=== PATIENT | female | born 1930 | race Caucasian/White ===

== ENCOUNTER 2017-11-08 12:28 | Emergency (ER) | payer MEDICARE ==
--- OUTSIDE RECORDS SUMMARY | 2017-11-08 13:29 | XMS REPORT | Continuity of Care Document ---
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 Latha Guardado PayID: [id number] [address] [place] [address] Advance Directives Description No Information Available Problems Description No Information Family History Description No Information Available Social History Type Date Description Comments Sex Unknown Tobacco Use Start: Unknown End: Unknown Former Cigarette Smoker ETOH Use Quit Using Alcohol. Recreational Drug Use Never Used Drugs Allergies, Adverse Reactions, Alerts Date Description Reaction Status Severity Comments 10/30/2017 Albuterol behavioral Active Moderate 10/30/2017 Bandaids Hives, Itching Active Moderate 10/30/2017 Adhesive Hives, Itching Active Moderate Medications Medication Date Status Form Strength Qnty SIG Indications Ordering Provider Levothyroxine 0 Active Tablets 88mcg 1 tab Unknown Sodium 000 every morning Amlodipine 0 Active Tablets 1 by Unknown Besylate 000 mouth every day Amiodarone HCL 00/0 Active Tablets 1 by Unknown 000 mouth every day Donepezil HCL 00/0 Active Tablets Unknown 000 Pravastatin 0 Active Tablets Unknown Sodium [address] 81mg 1 by Unknown 000 mouth every day Vitamin D 0 Active Capsules 1000Unit Unknown 000 Glipizide 000 Active Tablets Unknown 000 Sertraline HCL 000 Active Tablets 1 by Unknown 000 mouth every day Tylenol 00/00/0 Active Capsules 325mg 2 tab Unknown 000 every 6 hours as needed Immunizations Description No Information Available Vital Signs Date Vital Result Comment 10/30/2017 1:48pm Weight 141.00 lb Height 61 inches 5'1" BMI (Body Mass Index) 26.6 kg/m2 BP Systolic 130 mmHg BP Diastolic 72 mmHg Heart Rate 86 /min O2 % BldC Oximetry 95 % Body Temperature 98.8 F Pain Level 0 Results Description No Information Available Procedures Date Code Description Status 10/30/2017 80052 Remove Impacted Cerumen Completed Encounters Type Date Location Provider Dx Diagnosis Office Visit 10/30/2017 Main Office Agustina Ross, H61.23 Impacted 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
--- OUTSIDE RECORDS SUMMARY | 2017-11-08 13:29 | XMS REPORT | Continuity of Care Document ---
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 Doris Garcia MD Primary Care Physician Unavailable Payers Type Date Identification Numbers Payment Provider Subscriber Policy Number: [id number] Medicare Latha Guardado PayID: [id number] [address] [place] [address] Policy Number: [id number] [facility] Latha Guardado PayID: [id number] [address] [place] [address] Advance Directives Description No Information Available Problems [...] Besylate 000 mouth every day Amiodarone HCL 0 Active Tablets 1 by Unknown 000 mouth every day Donepezil HCL /0 Active Tablets Unknown 000 Pravastatin 0 Active Tablets Unknown Sodium [address] 81mg 1 by Unknown 000 mouth every day Vitamin D 0 Active Capsules 1000Unit Unknown 000 Glipizide 0 Active Tablets Unknown 000 Sertraline HCL 000 Active Tablets 1 by Unknown 000 mouth every day Tylenol 0 Active Capsules 325mg 2 tab Unknown 000 [...] 0 Results Description No Information Available Procedures Description No Information Available Encounters Description No Information Available Plan of Treatment No Information Available
--- OUTSIDE RECORDS SUMMARY | 2017-11-08 13:33 | XMS REPORT ---
:1930 External Reference #:[id number] [facility] Address [address], [address] [place] [address] Phone [phone] Care Team Providers Name Role Phone Doris Garcia MD Care Team Information Olive Packer Unavailable Doris Garcia MD Primary Care Physician Unavailable Payers Type Date Identification Numbers Payment Provider Subscriber Medicare Primary Policy Number: [id number] Medicare Latha Guardado PayID: [id number] [address] [place] [address] [facility] Part B Effective: Policy Number: [employer] Latha Causey 2014 [id number] [employer] PayID: [id number] [address] [place] [address] Problems Date Description Provider Status Onset: 04/06/2011 Sinus node dysfunction Ilan Kyle M.D., Active FACC Onset: 04/06/2011 Benign essential hypertension Ilan Kyle M.D., Active FACC Onset: 04/06/2011 Heart murmur Ilan Kyle M.D., Active FACC Onset: 05/02/2011 Complete atrioventricular block Ilan Kyle M.D., Active FACC Onset: 05/02/2011 Syncope and collapse Ilan Kyle M.D., Active FACC Onset: 11/05/2012 Atrial fibrillation Ilan Kyle M.D., Active FACC Onset: 11/21/2013 Fall From Snowboard Ilan Kyle M.D., Active FACC Onset: 11/26/2014 Cardiac pacemaker in situ Ilan Kyle M.D., Active FACC Onset: 05/31/2015 Essential hypertension Kimmie Alexander, Active MSN, VIDEO TAPE EDITOR Onset: 11/04/2015 Preoperative cardiovascular Ilan Kyle M.D., Active examination FACC Onset: 11/04/2015 Paroxysmal atrial fibrillation Ilan Kyle M.D., Active FACC Family History Date Family Member(s) Problem(s) Comments Father due to Natural Causes () - and asthma Mother due to Uterine Cancer () Mother Cancer First Son Diabetes Mellitus Type 2 First Son Hypertension First Son Hypercholesterolemia 3 additional sons, 1 daughter all healthy. 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 ADL's/IADL's Independent with all ADL's Cigarette Use 02/2013 Quit ETOH Use Denies alcohol use Smoking Yes Daily Caffeine Current Caffeine User Exercise Type/Frequency Does not exercise Exercise Limitations Shortness Of Breath Allergies, Adverse Reactions, Alerts Date Description Reaction Status Severity Comments 03/13/2013 Albuterol active "makes her crazy" 08/20/2014 Codeine active 07/16/2013 Adhesives active 07/08/2008 NKDA inactive Medications Medication Date Status Form Strength Qnty SIG Indications Ordering Provider Amiodarone HCL 03/04 Active Tablets 200mg 30tab Take One s Tablet By Ilan M.D., Every Day FACC Pravastatin 12/13 Active Tablets 10mg 30tab 1 po daily s with Doris causey evening MD meal Aspirin Ec 03/[address] 81mg 1 po daily with a Doris causey meal MD Glipizide Active Tablets 5mg 1/2 po qd Catherine Kimmie Murcia , MSN, VIDEO TAPE EDITOR Loperamide HCL Active Capsules 2mg prn prn Unknown diarrhea Levothyroxine Active Tablets 100mcg 30tab 1 by mouth Unknown Sodium s every day Tylenol Active Tablets 500mg 2 by mouth Unknown every 4 hours as needed Amlodipine Active Tablets 5mg 1/2 po qd Unknown Besylate Donepezil HCL Active Tablets 10mg 1 tab by Unknown mouth every daily Vitamin D3 Active Capsules 5000Unit 1 a day Unknown Maximum Strength Sertraline HCL Active Tablets 25mg 1 by mouth Unknown every day Furosemide 05/28 Hx Tablets 20mg 30tab 1 po ning s weekly and Doris causey prn MD Atenolol 04/06 Hx Tablets 25mg 60tab Take One 401.1 Rapidan s Tablet By Ilan M.D., 11/21 Every Day [facility] Imdur 07/09 Hx Tablets ER 30mg 1/2 po qd 24HR , Ilan Rogers M.D., [facility] Furosemide 07/08 Hx Tablets 40mg 1 po qd , Ilan Rogers M.D., [facility] Novolin 70/30 07/08 Hx Suspension 30 55 Units SQ qd , Ilan Rogers M.D., [facility] Lisinopril 07/08 Hx Tablets 20mg 1 po bid , Ilan Rogers M.D., [facility] Amlodipine 07/08 Hx Tablets 10mg 1 po qd Davidenko Besylate , Ilan Rogers M.D., [facility] Alendronate 07/08 Hx Tablets 35mg 1 po qweek enko Sodium , Ilan Rogers M.D., [facility] Ergocalciferol 07/08 Hx Powder 78021Vef as directed , Ilan Rogers M.D., [facility] Calcium 07/08 Hx Tablets 600-125 1 po qd Davidenko Carbonate/Vitamin /2008 , Ilan Rogers M.D., [facility] Aspirin 07/08 Hx Tablets 81mg 90tab 1 po qd s Ilan M.D., [facility] Meclizine HCL 07/08 Hx Tablets 12.5mg 1-2 tabs po q6h prn , Ilan Rogers M.D., [facility] Vitamin D 07/08 Hx Capsules 98670Lczw 1 po qweek , Ilan Rogers M.D., 11/08 [facility] Vitamin D Hx Tablets 1000Unit 2 po qd Unknown / Actos Hx Tablets 15mg 1 po qd Unknown Furosemide Hx Tablets 20mg 1 po qd Unknown Atenolol Hx Tablets 25mg 1 po qd 780.2 - 11/09 Tylenol Extra Hx Tablets 500mg 120ta 2 tab po Unknown Strength / bs qhs prn Anti-Diarrheal Hx Capsules 2mg po prn , Ilan Rogers M.D., [facility] Novolin 70/30 Hx Suspension 70-30% 55 units qd , Ilan Rogers M.D., [facility] Cholecalciferol Hx Crystals 1000mg 1 po qday Unknown / Januvia Hx Tablets 25mg 1 po qd Unknown / Iron Hx Tablets 325(65Fe) 60tab 1 po qd Unknown /0000 mg s Lasix Hx Tablets 20mg 1 po qd Unknown / - 07/15 Amlodipine Hx Tablets 5mg 90tab 1 po qd Alexander, Besylate /0000 s Kimmie - Simonetta / , MSN, /2013 VIDEO TAPE EDITOR Vitamin D Hx Capsules 2000Unit 1 po qd Unknown /0000 Coumadin Hx Tablets 2.5mg 60tab 1-2 tabs Unknown /0000 s po qd as - directed 07/15 Vital Signs Date Vital Result Comment 10/16/2017 BP Systolic Sitting Left Arm 120 mmHg BP Diastolic Sitting Left Arm 60 mmHg Heart Rate 82 /min Respiratory Rate 14 /min Height 63 inches 5'3" Weight 143.00 lb BMI (Body Mass Index) 25.3 kg/m2 BSA (Body Surface Area) 1.68 m2 Alpha body weight in kilograms 52 O2 % BldC Oximetry 96 % 11/06/2016 BP Systolic Sitting Right Arm 144 mmHg BP Diastolic Sitting Right Arm 72 mmHg Heart Rate 77 /min Respiratory Rate 17 /min Height 63 inches 5'3" Weight 149.00 lb BMI (Body Mass Index) 26.4 kg/m2 BSA (Body Surface Area) 1.71 m2 Alpha body weight in kilograms 52 11/04/2015 BP Systolic Sitting Right Arm 140 mmHg BP Diastolic Sitting Right Arm 76 mmHg Heart Rate 72 /min Respiratory Rate 16 /min Height 63 inches 5'3" Weight 145.00 lb BMI (Body Mass Index) 25.7 kg/m2 BSA (Body Surface Area) 1.69 m2 05/31/2015 BP Systolic Sitting Right Arm 148 mmHg BP Diastolic Sitting Right Arm 58 mmHg Heart Rate 82 /min Respiratory Rate 16 /min Height 63 inches 5'3" Weight 146.00 lb BMI (Body Mass Index) 25.9 kg/m2 BSA (Body Surface Area) 1.69 m2 11/26/2014 BP Systolic Sitting Left Arm 138 mmHg BP Diastolic Sitting Left Arm 56 mmHg Heart Rate 67 /min Respiratory Rate 16 /min Height 63 inches 5'3" Weight 150.00 lb BMI (Body Mass Index) 26.6 kg/m2 BSA (Body Surface Area) 1.71 m2 05/27/2014 BP Systolic Sitting Left Arm 142 mmHg BP Diastolic Sitting Left Arm 82 mmHg Heart Rate 78 /min Respiratory Rate 20 /min Height 63 inches 5'3" Weight 157.00 lb BMI (Body Mass Index) 27.8 kg/m2 BSA (Body Surface Area) 1.74 m2 11/21/2013 BP Systolic Sitting Right Arm 134 mmHg BP Diastolic Sitting Right Arm 84 mmHg Heart Rate 88 /min Respiratory Rate 18 /min Height 63 inches 5'3" Weight 151.00 lb BMI (Body Mass Index) 26.7 kg/m2 BSA (Body Surface Area) 1.72 m2 07/16/2013 BP Systolic Sitting Right Arm 118 mmHg BP Diastolic Sitting Right Arm 62 mmHg Height 63 inches 5'3" Weight 151.00 lb BMI (Body Mass Index) 26.7 kg/m2 BSA (Body Surface Area) 1.72 m2 04/28/2013 BP Systolic Sitting Right Arm 134 mmHg BP Diastolic Sitting Right Arm 68 mmHg Heart Rate 78 /min Respiratory Rate 18 /min Height 63.5 inches 5'3.50" Weight 144.00 lb BMI (Body Mass Index) 25.1 kg/m2 BSA (Body Surface Area) 1.69 m2 11/05/2012 BP Systolic Sitting Right Arm 130 mmHg BP Diastolic Sitting Right Arm 62 mmHg Heart Rate 82 /min Respiratory Rate 16 /min Height 63.5 inches 5'3.50" Weight 145.00 lb BMI (Body Mass Index) 25.3 kg/m2 BSA (Body Surface Area) 1.70 m2 07/16/2012 BP Systolic Sitting Right Arm 122 mmHg BP Diastolic Sitting Right Arm 60 mmHg Heart Rate 84 /min Respiratory Rate 16 /min Height 63.5 inches 5'3.50" Weight 147.00 lb BMI (Body Mass Index) 25.6 kg/m2 BSA (Body Surface Area) 1.71 m2 05/02/2011 BP Systolic Sitting Right Arm 126 mmHg BP Diastolic Sitting Right Arm 62 mmHg Heart Rate 68 /min Respiratory Rate 16 /min Height 63.5 inches 5'3.50" Weight 148.00 lb BMI (Body Mass Index) 25.8 kg/m2 04/06/2011 BP Systolic Sitting Right Arm 166 mmHg BP Diastolic Sitting Right Arm 68 mmHg Heart Rate 68 /min Regular Respiratory Rate 16 /min Height 63.5 inches 5'3.50" Weight 143.00 lb BMI (Body Mass Index) 24.9 kg/m2 11/09/2009 BP Systolic Sitting Right Arm 124 mmHg BP Diastolic Sitting Right Arm 54 mmHg Heart Rate 46 /min Irregular Respiratory Rate 12 /min Height 63.5 inches 5'3.50" Weight 154.00 lb BMI (Body Mass Index) 26.8 kg/m2 07/09/2008 Heart Rate 52 /min Weight 154.00 lb Results Test Date Test Result H/L Range Note Laboratory test finding 07/01/2015 A/G Ratio 1.7 Ratio 1.0-2.2 Flora Egfr 30 Low >60 Albumin 4.1 g/dL 3.6-4.9 Alkaline Phosphatase 54 U/L 24-140 Alt 16 U/L 3-42 Anion Gap 9 mmol/L 6-14 Ast 21 U/L 8-42 BUN 37 mg/dL High 6-26 CPK 63 U/L 12-199 Calcium 9.4 mg/dL 8.5-10.2 Carbon Dioxide 28 mmol/L 24-34 Chloride 107 mmol/L 97-109 Creatinine 1.9 mg/dL High 0.5-1.4 Globulin 2.4 g/dL 2.0-3.5 Glucose 157 mg/dL High 70-105 Hemoglobin A1c 5.9 % 4.1-5.9 Non Flora Egfr 25 Low >60 Potassium 4.6 mmol/L 3.5-5.2 1 Sodium 139 mmol/L 134-142 2 Total Bilirubin 0.6 mg/dL 0.1-1.3 Total Protein 6.5 g/dL 6.0-8.0 Lipid 07/01/2015 Chol/ HDL Ratio 2.9 ratio Low 3.7-5.6 Cholesterol 117 mg/dL 50-199 3 HDL 41 mg/dL 35-85 LDL (Calc) 52 mg/dL 20-99 Triglycerides 121 mg/dL 30-200 4 VLDL 24 mg/dL 2- Lipid 12/10/2014 Chol/ HDL Ratio 2.8 ratio Low 3.7-5.6 Cholesterol 130 mg/dL 50-199 HDL 47 mg/dL 35-85 LDL (Calc) 58 mg/dL 20-99 Triglycerides 126 mg/dL 30-200 VLDL 25 mg/dL 2- Laboratory test finding 12/10/2014 A/G Ratio 1.9 Ratio 1.0-2.2 Flora Egfr 29 Low >60 Albumin 4.6 g/dL 3.6-4.9 Alkaline Phosphatase 56 U/L 24-140 Alt 14 U/L 3-42 Anion Gap 12 mmol/L 6-14 Ast 18 U/L 8-42 BUN 36 mg/dL High 6-26 CPK 55 U/L 12-199 Calcium 9.7 mg/dL 8.5-10.2 Carbon Dioxide 26 mmol/L 24-34 Chloride 104 mmol/L 97-109 Creatinine 2.0 mg/dL High 0.5-1.4 Globulin 2.4 g/dL 2.0-3.5 Glucose 92 mg/dL 70-105 Hemoglobin A1c 5.8 % 4.1-5.9 Non Flora Egfr 24 Low >60 Potassium 5.2 mmol/L 3.5-5.2 Sodium 137 mmol/L 134-142 TSH 1.93 uIU/mL 0.35-4.94 Total Bilirubin 0.7 mg/dL 0.1-1.3 Total Protein 7.0 g/dL 6.0-8.0 Vit D,25 Hydroxy 61 ng/mL 31-100 Lipid 09/01/2014 Chol/ HDL Ratio 2.8 ratio Low 3.7-5.6 Cholesterol 118 mg/dL 50-199 HDL 42 mg/dL 35-85 5 LDL (Calc) 55 mg/dL 20-99 6 Triglycerides 104 mg/dL 30-200 VLDL 21 mg/dL 2-29 Laboratory test finding 09/01/2014 A/G Ratio 2.0 Ratio 1.0-2.2 Flora Egfr 23 Low >60 7 Albumin 4.5 g/dL 3.6-4.9 Alkaline Phosphatase 53 U/L 24-140 Alt 14 U/L 3-42 Anion Gap 13 mmol/L 6-14 Ast 20 U/L 8-42 BUN 36 mg/dL High 6-26 CPK 74 U/L 12-199 Calcium 9.5 mg/dL 8.5-10.2 Carbon Dioxide 28 mmol/L 24-34 Chloride 106 mmol/L 97-109 Creatinine 2.4 mg/dL High 0.5-1.4 Globulin 2.3 g/dL 2.0-3.5 Glucose 137 mg/dL High 70-105 Hemoglobin A1c 5.7 % 4.1-5.9 Non Flora Egfr 19 Low >60 8 Potassium 5.3 mmol/L High 3.5-5.2 Sodium 142 mmol/L 134-142 TSH 2.61 uIU/mL 0.35-4.94 Total Bilirubin 0.6 mg/dL 0.1-1.3 Total Protein 6.8 g/dL 6.0-8.0 Lipid Panel 06/11/2013 Cholesterol 138.0 mg/dL 50.0-199.0 HDL 47.0 mg/dL 29.0-86.0 Triglycerides 83.0 mg/dL 30.0-249.0 Chol/HDL Ratio 2.9 ratio vLDL 16.6 ng/dL LDL, Calculated 74.4 mg/dL 20.0-129.0 Laboratory test finding 06/11/2013 Sodium 142.0 mmil/L 137.0-145.0 Potasium 4.9 mmol/L 3.6-5.0 Chloride 108.0 mmol/L High 98.0-107.0 Co2 25.0 mmol/L 22.0-30.0 Glucose 144.0 mg/dL High 75.0-110.0 BUN 46.0 mg/dL High 7.0-18.0 Creatinine-Serum 2.4 mg/dL High 0.7-1.2 BUN/Creat Ratio 19.2 ratio 12.0-20.0 Anion Gap 9.0 mmol/L Low 10.0-20.0 Calcium 9.1 mg/dL 8.7-10.5 Total Protein 7.6 g/dL 6.3-8.2 Albumin 4.5 g/dL 3.5-5.0 Globulin 3.1 g/dL 2.7-4.3 A/G Ratio 1.5 ratio Low 1.6-2.2 Ast 15.0 U/L 14.0-36.0 Alt 9.0 U/L 9.0-52.0 Total Bilirubin 0.8 mg/dL 0.2-1.3 Laboratory test finding 06/11/2013 Alk. Phos. 56.0 U/L 30.0-126.0 eGFR 20.8 mi/minper1.73 9 WBC 6.3 K/ul 4.1-10.9 RBC 4.0 M/ul Low 4.2-6.3 HGB 12.1 Gm/dl 12.0-16.0 HCT 35.3 % Low 37.0-51.0 MCV 87.6 Fl 80.0-97.0 MCH 30.0 pg 26.0-32.0 MCHC 34.2 g/dL 31.0-36.0 RDW 13.2 % 11.5-14.5 PLT 178 K/ul 140-440 MPV 6.6 fL 6.0-10.0 % Jia 72 % High 50-70 % Lymph 18 % Low 20-44 % Hocking 7.9 % 2.0-10.0 % Eos. 1.3 % 0.0-4.0 % Baso. 0.9 % 0.0-2.0 Absolute Jia. 4.53 K/ul 2.05-7.63 Absolute Lymph. 1.2 K/ul 0.8-4.8 Absolute Hocking. 0.5 K/ul 0.1-1.0 Absolute Eos. 0.1 K/ul 0.0-0.5 Absolute Baso. 0.1 K/ul 0.0-0.3 Vitamin D 38.9 ng/mL 30.0-100.0 % A1c 5.6 % 4.1-6.5 Protime 05/12/2013 Protime 19.3 s High 12.1-14.9 Inr 1.6 High 0.9-1.1 10 Protime 03/23/2011 Protime 14.2 seconds 12.2-15.2 Inr 1.1 0.9-1.1 11 1 Concerning GFR Guidelines: Normal function or mild renal disease, if clinically at risk: >/=60 mL/min Moderately decreased: 30-59 Severely decreased: 15-29 Renal failure: <15 Glomerular Filtration Rate (GFR) is estimated based on the MDRD equation, which assumes a steady state for creatinine as recommended by the National Kidney Disease Education Program in conjunction with the National Institutes of Health and the National Kidney Foundation. Clinical conditions in which it may be necessary to measure GFR by using clearance methods include extremes of age and body size, severe malnutrition or obesity, diseases of skeletal muscle, paraplegia or quadriplegia, vegetarian diet, rapidly changing kidney function, and calculation of the dose of potentially toxic drugs that are excreted by the kidneys. 2 Concerning GFR Guidelines for Americans: Normal function or mild renal disease, if clinically at risk: >/=60 mL/min Moderately decreased: 30-59 Severely decreased: 15-29 Renal failure: <15 3 Per NCEP ATP III Guidelines: Results lower than 40 mg/dL are suggestive of increased risk for coronary artery disease. Results > or=to 60 mg/dL are considered a negative risk factor. 4 Per NCEP ATP III Guidelines: Normal Population <130 Patients with medical conditions: CHD/DM Optimal: <100 Borderline high: 130-159 High: 160-189 Very high: >189 5 Per NCEP ATP III Guidelines: Results lower than 40 mg/dL are suggestive of increased risk for coronary artery disease. Results > or=to 60 mg/dL are considered a negative risk factor. 6 Per NCEP ATP III Guidelines: Normal Population <130 Patients with medical conditions: CHD/DM Optimal: <100 Borderline high: 130-159 High: 160-189 Very high: >189 7 Concerning GFR Guidelines for Americans: Normal function or mild renal disease, if clinically at risk: >/=60 mL/min Moderately decreased: 30-59 Severely decreased: 15-29 Renal failure: <15 8 Concerning GFR Guidelines: Normal function or mild renal disease, if clinically at risk: >/=60 mL/min Moderately decreased: 30-59 Severely decreased: 15-29 Renal failure: <15 Glomerular Filtration Rate (GFR) is estimated based on the MDRD equation, which assumes a steady state for creatinine as recommended by the National Kidney Disease Education Program in conjunction with the National Institutes of Health and the National Kidney Foundation. Clinical conditions in which it may be necessary to measure GFR by using clearance methods include extremes of age and body size, severe malnutrition or obesity, diseases of skeletal muscle, paraplegia or quadriplegia, vegetarian diet, rapidly changing kidney function, and calculation of the dose of potentially toxic drugs that are excreted by the kidneys. 9 For -Japanese patients multiply result by 1.180 10 THERAPEUTIC INR RANGE: 2.0 - 3.0 DVT, Pulmonary embolus, prophylaxis against venous thrombosis or systemic embolization in high risk patients. 2.5 - 3.5 Mechanical heart valves 11 THERAPEUTIC INR RANGE: 2.0 - 3.0 DVT, Pulmonary embolus, prophylaxis against venous thrombosis or systemic embolization in high risk patients. 2.5 - 3.5 Mechanical heart valves Procedures Date CPT Code Description Status 10/16/2017 32176 Dual Pacemaker Programming Anayisis, Review And Report Completed 10/16/2017 06788 EKG-Tracing And Report Completed 04/17/2017 85199 Dual Pacemaker Programming Anayisis, Review And Report Completed 11/06/2016 91156 EKG-Tracing And Report Completed 10/17/2016 21317 Dual Pacemaker Programming Anayisis, Review And Report Completed 04/18/2016 06656 Dual Pacemaker Programming Anayisis, Review And Report Completed 04/18/2016 72146 Dual Pacemaker Programming Anayisis, Review And Report Completed 11/16/2015 21860 Cardioversion/Defibrillation Dual Pacemaker Completed 11/16/2015 38267 Cardioversion/Defibrillation Dual Pacemaker Completed 05/31/2015 53543 Dual Pacemaker Programming Anayisis, Review And Report Completed 05/31/2015 60308 Dual Pacemaker Programming Anayisis, Review And Report Completed 05/31/2015 59832 EKG-Tracing And Report Completed 05/18/2015 57941 Dual Pacemaker Programming Anayisis, Review And Report Completed 05/18/2015 04330 Dual Pacemaker Programming Anayisis, Review And Report Completed 12/31/2014 08161 Echocardiogram Complete Completed 11/26/2014 66145 Dual Pacemaker Programming Anayisis, Review And Report Completed 11/26/2014 72707 EKG-Tracing And Report Completed 05/19/2014 76486 Dual Pacemaker Programming Anayisis, Review And Report Completed 05/19/2014 66374 Dual Pacemaker Programming Anayisis, Review And Report Completed 11/21/2013 31896 EKG-Tracing And Report Completed 11/18/2013 35418 Dual Pacemaker Programming Anayisis, Review And Report Completed 11/18/2013 06389 Dual Pacemaker Programming Anayisis, Review And Report Completed 07/01/2013 60295 Dual Pacemaker Programming Anayisis, Review And Report Completed 07/01/2013 35192 Dual Pacemaker Programming Anayisis, Review And Report Completed 04/28/2013 57854 Pacemaker Interrogaton Eval In Person Completed 04/28/2013 03686 Pacemaker Interrogaton Eval In Person Completed 04/11/2013 81140 Myocardial Imaging Tomographic Multiple Study AT Rest Completed Or Stress 04/11/2013 78642 Stress Test Physician Super Only Completed 04/11/2013 44793 Stress Test Physician Super Only Completed 04/11/2013 24776 Stress Test Interpre And Report Only Completed 04/10/2013 04548 Echocardiogram Complete Completed 03/04/2013 76596 Dual Pacemaker Programming Anayisis, Review And Report Completed 03/04/2013 42809 Dual Pacemaker Programming Anayisis, Review And Report Completed 11/05/2012 67677 EKG-Tracing And Report Completed 10/29/2012 69396 Dual Pacemaker Programming Anayisis, Review And Report Completed 10/29/2012 56496 Dual Pacemaker Programming Anayisis, Review And Report Completed 07/16/2012 83398 EKG-Tracing And Report Completed 06/18/2012 52561 Dual Pacemaker Programming Anayisis, Review And Report Completed 06/18/2012 57800 Dual Pacemaker Programming Anayisis, Review And Report Completed 01/30/2012 46333 Dual Pacemaker Programming Anayisis, Review And Report Completed 01/30/2012 48294 Dual Pacemaker Programming Anayisis, Review And Report Completed 10/10/2011 38420 Dual Pacemaker Programming Anayisis, Review And Report Completed 10/10/2011 70061 Dual Pacemaker Programming Anayisis, Review And Report Completed 06/13/2011 97240 Dual Pacemaker Programming Anayisis, Review And Report Completed 05/02/2011 06854 Dual Pacemaker Programming Anayisis, Review And Report Completed 04/06/2011 01808 EKG-Tracing And Report Completed 03/23/2011 51362 Echocardiogram Complete Completed 03/23/2011 64590 Insert or replace pacemaker with electrodes, atrial & Completed ventricle 03/23/2011 81051 Anesthesia, Pacemaker Insertion Completed 06/06/2010 95134 EKG Interpretation And Report Only Completed 12/27/2009 27402 Event Monitor Inter/Review Only Completed 11/09/2009 26164 EKG Interpretation And Report Only Completed 07/09/2008 01293 EKG-Tracing And Report Completed 06/23/2008 27844 Echocardiography 2D Inducedstress Completed 06/23/2008 83912 Stress Test Interpre And Report Only Completed 12/18/1994 27596 Cholecystectomy W. Cholaniography Completed Encounters Type Date Location Provider CPT E/M Dx Office Visit 10/16/2017 11:00a Cardiology Office Kimmie Alexander 36378 I49.5 PAM Murcia, VIDEO TAPE EDITOR I48.0 I10 Z95.0 Office Visit 11/06/2016 10:00a Cardiology Office Kimmie Alexander, 17216 I49.5 MSN, VIDEO TAPE EDITOR I48.0 I10 Z95.0 R60.0 Office Visit 11/04/2015 2:20p Cardiology Office Ilan Kyle, 74390 Z01.810 M.Henry, [facility] I49.5 I48.0 Office Visit 05/31/2015 3:00p Cardiology Office Kimmie Alexander, 37006 I48.0 MSN, VIDEO TAPE EDITOR I49.5 I10 Z95.0 Office Visit [facility]2014 [facility] [place] [address] R26.2 Center R53.1 Z91.81 Office Visit 11/26/2014 10:30a Cardiology Office Ilan Kyle 46712 I48.0 M.Henry, [facility] Z95.0 Office Visit 05/27/2014 10:20a Cardiology Office Kimmie Alexander 01438 786.50 MSN, VIDEO TAPE EDITOR 427.81 426.0 427.31 401.1 250.00 V45.01 Office Visit 11/21/2013 11:20a Cardiology Office Ilan Kyle, 48143 427.81 M.D., FACC 427.31 426.0 Office Visit 07/23/2013 9:45a Orthopaedic Office Charmaine Garcia, 78977 719.43 RPAC 715.04 Office Visit 07/16/2013 1:45p Orthopaedic Office Charmaine Garcia, 78068 719.43 RPAC 715.04 Office Visit 04/28/2013 11:20a Cardiology Office Kimmie Alexander, 92959 427.31 MSN, VIDEO TAPE EDITOR 427.81 426.0 V45.01 401.1 Office Visit 04/15/2013 10:22a [facility] Kristen Nettles M.D. 73406 585.3 [facility] 250.00 401.9 Office Visit 04/11/2013 10:54a Cardiology Office Ilan Kyle, 06445 786.50 M.D., FACC Office Visit 02/21/2013 9:06a [facility] Jean-Paul Galindo, 67237 428.0 [facility] M.DChristie 491.21 Office Visit 11/05/2012 10:45a Cardiology Office Ilan Kyle, 40777 427.81 M.D., FACC 427.31 426.0 Office Visit 07/16/2012 1:40p Cardiology Office Kimmie Alexander, 13626 427.81 MSN, VIDEO TAPE EDITOR V45.01 401.1 Office Visit 05/02/2011 10:00a Cardiology Office Ilan Kyle, 76269 426.0 M.D., FACC 780.2 401.1 Office Visit 04/06/2011 10:00a Cardiology Office Ilan Kyle, 25507 427.81 M.D., FACC 401.1 785.2 Office Visit 03/23/2011 10:49a Surgical Office Keith Roe 16359 427.81 H., Jessica 427.89 Office Visit 03/23/2011 4:23p Cardiology Office Ilan Kyle, 39618 427.89 M.D., FACC Office Visit 11/09/2009 11:00a Cardiology Office Anabella Ilan Ken, 34595 780.2 M.D., [facility] 786.51 401.1 V72.81 Office Visit 07/09/2008 1:15p Cardiology Office AnabellaIlan, 67843 786.51 M.D., [facility] 786.05 780.4 V15.82 Plan of Care Future Appointment(s):04/16/2018 10:45 am - Abby Mccurdy PA at Cardiology [id number]/16/2017 - Kimmie Alexander, MSN, FNPI49.5 Sick sinus syndromeComments:We changed her pacer mode to DDDR and she is now A-V pacing. Monitor. Will follow in our clinic, per protocol.I48.0 Paroxysmal atrial fibrillationComments:No changes. Monitor.I10 Essential (primary) hypertensionComments:No changes.Z95.0 Presence of cardiac pacemakerComments: Will follow in our pacer clinic, per protocol.AllFollow up:Follow up visit in one year.
--- OUTSIDE RECORDS SUMMARY | 2017-11-08 13:33 | XMS REPORT ---
:1930 External Reference #:[id number] Author Organization [facility] Address [address], [address] [place] [address] Phone [phone] Care Team Providers Name Role Phone Doris Garcia MD Care Team Information Technology Officer Unavailable Doris Garcia MD Primary Care Physician Unavailable Payers Type Date Identification Numbers Payment Provider Subscriber Medicare Primary Policy Number: [id number] Medicare Latha Guardado PayID: [id number] [address] [place] [address] [facility] Effective: Policy Number: [employer] Latha Causey 2014 [id number] [employer] PayID: [id number] [address] [place] [address] Problems Date Description Provider Status Onset: 04/06/2011 [...] 05/31/2015 Essential hypertension Kimmie Alexander, Active MSN, ESCAPEMENT MATCHER Onset: 11/04/2015 Preoperative cardiovascular Ilan Kyle M.D., [...] diabetic diet 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's/IADL's Independent [...] po qd Catherine Kimmie Murcia , MSN, ESCAPEMENT MATCHER Loperamide HCL Active Capsules 2mg prn prn [...] Hx Tablets 25mg 60tab Take One 401.1 [place] s Tablet By Ilan M.D., 11/21 Every Day [facility] Imdur 07/09 Hx Tablets ER 30mg 1/2 po qd 24HR , Ilan Rogers M.D., [facility] Furosemide 07/08 Hx Tablets 40mg 1 po qd , Ilan Rogers M.D., [facility] Novolin 70/30 07/08 Hx Suspension 30 55 Units SQ qd , Ilan Rogers M.D., [facility] Lisinopril 07/08 Hx Tablets 20mg 1 po bid , Ilan Rogers M.D., [facility] Amlodipine 07/08 Hx Tablets 10mg 1 po qd Davidenko Besylate , Ilan Rogers M.D., [facility] Alendronate 07/08 Hx Tablets 35mg 1 po qweek enko Sodium , Ilan Rogers M.D., [facility] Ergocalciferol 07/08 Hx Powder 42018Ofc as directed , Ilan Rogers M.D., [facility] Calcium 07/08 Hx Tablets 600-125 1 po qd Davidenko Carbonate/Vitamin /2008 , Ilan Rogers M.D., [facility] Aspirin 07/08 Hx Tablets 81mg 90tab 1 po qd s Ilan M.D., [facility] Meclizine HCL 07/08 Hx Tablets 12.5mg 1-2 tabs po q6h prn , Ilan Rogers M.D., [facility] Vitamin D 07/08 Hx Capsules 39214Pxdl 1 po qweek , Ilan Rogers M.D., 11/08 [facility] Vitamin D Hx Tablets 1000Unit 2 po qd Unknown / Actos Hx Tablets 15mg 1 po qd Unknown Furosemide Hx Tablets 20mg 1 po qd Unknown Atenolol Hx Tablets 25mg 1 po qd 780.2 - 11/09 Tylenol Extra Hx Tablets 500mg 120ta 2 tab po Unknown Strength / bs qhs prn Anti-Diarrheal Hx Capsules 2mg po prn , Ilan Rogers M.D., [facility] Novolin 70/30 Hx Suspension 70-30% 55 units qd , Ilan Rogers M.D., [facility] Cholecalciferol Hx Crystals 1000mg 1 po qday Unknown / Januvia Hx Tablets 25mg 1 po qd Unknown / Iron Hx Tablets 325(65Fe) 60tab 1 po qd Unknown /0000 mg s Lasix Hx Tablets 20mg 1 po qd Unknown / - 07/15 Amlodipine Hx Tablets 5mg 90tab 1 po qd Alexander, Besylate /0000 s Kimmie - Simonetta / , MSN, /2013 ESCAPEMENT MATCHER Vitamin D Hx Capsules 2000Unit 1 po [...] kg/m2 BSA (Body Surface Area) 1.68 m2 [place] body weight in kilograms 52 O2 % BldC Oximetry 96 % 11/06/2016 BP Systolic Sitting Right Arm 144 mmHg BP Diastolic Sitting Right Arm 72 mmHg Heart Rate 77 /min Respiratory Rate 17 /min Height 63 inches 5'3" Weight 149.00 lb BMI (Body Mass Index) 26.4 kg/m2 BSA (Body Surface Area) 1.71 m2 [place] body weight in kilograms 52 11/04/2015 BP [...] mg/dL 0.1-1.3 Total Protein 6.8 g/dL 6.0-8.0 Laboratory test finding 06/11/2013 Sodium 142.0 mmil/L [...] U/L 9.0-52.0 Total Bilirubin 0.8 mg/dL 0.2-1.3 Lipid Panel 06/11/2013 Cholesterol 138.0 mg/dL 50.0-199.0 HDL 47.0 mg/dL 29.0-86.0 Triglycerides 83.0 mg/dL 30.0-249.0 Chol/HDL Ratio 2.9 ratio vLDL 16.6 ng/dL LDL, Calculated 74.4 mg/dL 20.0-129.0 Laboratory test finding 06/11/2013 Alk. Phos. 56.0 [...] % Lymph 18 % Low 20-44 % [place] 7.9 % 2.0-10.0 % Eos. 1.3 % 0.0-4.0 % Baso. 0.9 % 0.0-2.0 Absolute Jia. 4.53 K/ul 2.05-7.63 Absolute Lymph. 1.2 K/ul 0.8-4.8 Absolute Rusk. 0.5 K/ul 0.1-1.0 Absolute Eos. 0.1 K/ul [...] are excreted by the kidneys. 9 For -[place] patients multiply result by 1.180 10 THERAPEUTIC [...] Procedures Date CPT Code Description Status 10/16/2017 39687 EKG-Tracing And Report Completed 04/17/2017 29220 Dual Pacemaker Programming Anayisis, Review And Report Completed 11/06/2016 87805 EKG-Tracing And Report Completed 10/17/2016 03940 Dual Pacemaker Programming Anayisis, Review And Report Completed 04/18/2016 62168 Dual Pacemaker Programming Anayisis, Review And Report Completed 04/18/2016 21511 Dual Pacemaker Programming Anayisis, Review And Report Completed 11/16/2015 44681 Cardioversion/Defibrillation Dual Pacemaker Completed 11/16/2015 83415 Cardioversion/Defibrillation Dual Pacemaker Completed 05/31/2015 34044 Dual Pacemaker Programming Anayisis, Review And Report Completed 05/31/2015 51014 Dual Pacemaker Programming Anayisis, Review And Report Completed 05/31/2015 54490 EKG-Tracing And Report Completed 05/18/2015 07062 Dual Pacemaker Programming Anayisis, Review And Report Completed 05/18/2015 29064 Dual Pacemaker Programming Anayisis, Review And Report Completed 12/31/2014 80153 Echocardiogram Complete Completed 11/26/2014 86540 Dual Pacemaker Programming Anayisis, Review And Report Completed 11/26/2014 86892 EKG-Tracing And Report Completed 05/19/2014 41634 Dual Pacemaker Programming Anayisis, Review And Report Completed 05/19/2014 90214 Dual Pacemaker Programming Anayisis, Review And Report Completed 11/21/2013 60893 EKG-Tracing And Report Completed 11/18/2013 43717 Dual Pacemaker Programming Anayisis, Review And Report Completed 11/18/2013 99883 Dual Pacemaker Programming Anayisis, Review And Report Completed 07/01/2013 69605 Dual Pacemaker Programming Anayisis, Review And Report Completed 07/01/2013 65248 Dual Pacemaker Programming Anayisis, Review And Report Completed 04/28/2013 50414 Pacemaker Interrogaton Eval In Person Completed 04/28/2013 06707 Pacemaker Interrogaton Eval In Person Completed 04/11/2013 58960 Myocardial Imaging Tomographic Multiple Study AT Rest Completed Or Stress 04/11/2013 08890 Stress Test Physician Super Only Completed 04/11/2013 38003 Stress Test Physician Super Only Completed 04/11/2013 05359 Stress Test Interpre And Report Only Completed 04/10/2013 87309 Echocardiogram Complete Completed 03/04/2013 53933 Dual Pacemaker Programming Anayisis, Review And Report Completed 03/04/2013 79955 Dual Pacemaker Programming Anayisis, Review And Report Completed 11/05/2012 02598 EKG-Tracing And Report Completed 10/29/2012 90955 Dual Pacemaker Programming Anayisis, Review And Report Completed 10/29/2012 21370 Dual Pacemaker Programming Anayisis, Review And Report Completed 07/16/2012 75634 EKG-Tracing And Report Completed 06/18/2012 37576 Dual Pacemaker Programming Anayisis, Review And Report Completed 06/18/2012 52325 Dual Pacemaker Programming Anayisis, Review And Report Completed 01/30/2012 77257 Dual Pacemaker Programming Anayisis, Review And Report Completed 01/30/2012 16678 Dual Pacemaker Programming Anayisis, Review And Report Completed 10/10/2011 41678 Dual Pacemaker Programming Anayisis, Review And Report Completed 10/10/2011 95828 Dual Pacemaker Programming Anayisis, Review And Report Completed 06/13/2011 43650 Dual Pacemaker Programming Anayisis, Review And Report Completed 05/02/2011 87154 Dual Pacemaker Programming Anayisis, Review And Report Completed 04/06/2011 55676 EKG-Tracing And Report Completed 03/23/2011 93797 Echocardiogram Complete Completed 03/23/2011 53367 Insert or replace pacemaker with electrodes, atrial & Completed ventricle 03/23/2011 89190 Anesthesia, Pacemaker Insertion Completed 06/06/2010 52182 EKG Interpretation And Report Only Completed 12/27/2009 49474 Event Monitor Inter/Review Only Completed 11/09/2009 84796 EKG Interpretation And Report Only Completed 07/09/2008 56508 EKG-Tracing And Report Completed 06/23/2008 17789 Echocardiography 2D Inducedstress Completed 06/23/2008 88608 Stress Test Interpre And Report Only Completed 12/18/1994 92607 Cholecystectomy W. Cholaniography Completed Encounters Type Date Location Provider CPT E/M Dx Office Visit 10/16/2017 11:00a Cardiology Office Kimmie Alexander 68150 I49.5 Divina, PAM, ESCAPEMENT MATCHER I48.0 I10 Z95.0 Office Visit 11/06/2016 10:00a Cardiology Office Kimmie Alexander 46317 I49.5 MSN, ESCAPEMENT MATCHER I48.0 I10 Z95.0 R60.0 Office Visit 11/04/2015 2:20p Cardiology Office Ilan Kyle, 17874 Z01.810 MPrema, [facility] I49.5 I48.0 Office Visit 05/31/2015 3:00p Cardiology Office Kimmie Alexander, 92542 I48.0 MSN, ESCAPEMENT MATCHER I49.5 I10 Z95.0 Office Visit 12/12[facility]2014 [facility] [address] R26.2 Center R53.1 Z91.81 Office Visit 11/26/2014 10:30a Cardiology Office Ilan Kyle 80314 I48.0 MPrema, [facility] Z95.0 Office Visit 05/27/2014 10:20a Cardiology Office Kimmie Alexander 80289 786.50 MSN, ESCAPEMENT MATCHER 427.81 426.0 427.31 401.1 250.00 V45.01 Office Visit 11/21/2013 11:20a Cardiology Office Ilan Kyle 29366 427.81 M.D., FACC 427.31 426.0 Office Visit 07/23/2013 9:45a Orthopaedic Office Charmaine Garcia, 31141 719.43 RPAC 715.04 Office Visit 07/16/2013 1:45p Orthopaedic Office GarciaCharmaine rice, 54745 719.43 RPAC 715.04 Office Visit 04/28/2013 11:20a Cardiology Office Kimmie Alexander, 72474 427.31 MSN, ESCAPEMENT MATCHER 427.81 426.0 V45.01 401.1 Office Visit 04/15/2013 10:22a [facility] Kristen Nettles M.D. 59946 585.3 [facility] 250.00 401.9 Office Visit 04/11/2013 10:54a Cardiology Office Ilan Kyle, 50150 786.50 M.DChristie, FACC Office Visit 02/21/2013 9:06a [facility] Jean-Paul Galindo 90235 428.0 [facility] M.DChristie 491.21 Office Visit 11/05/2012 10:45a Cardiology Office Ilan Kyle, 38622 427.81 M.DChristie, FACC 427.31 426.0 Office Visit 07/16/2012 1:40p Cardiology Office Kimmie Alexander, 11096 427.81 MSN, ESCAPEMENT MATCHER V45.01 401.1 Office Visit 05/02/2011 10:00a Cardiology Office Ilan Kyle, 29010 426.0 M.DChristie, FACC 780.2 401.1 Office Visit 04/06/2011 10:00a Cardiology Office Ilan Kyle, 32551 427.81 M.D., FACC 401.1 785.2 Office Visit 03/23/2011 10:49a Surgical Office Keith Roe 61531 427.81 HJessica Soriano 427.89 Office Visit 03/23/2011 4:23p Cardiology Office Ilan Kyle 15276 427.89 M.DChristie, FACC Office Visit 11/09/2009 11:00a Cardiology Office Ilan KyleChristie, 21075 780.2 M.D., [facility] 786.51 401.1 V72.81 Office Visit 07/09/2008 1:15p Cardiology Office Ilan KyleChristie, 25433 786.51 M.D., [facility] 786.05 780.4 V15.82 Plan of Care Future Appointment(s):04/16/2018 10:45 am - Abby Mccurdy PA at Cardiology [id number]/16/2017 - Kimmie Alexander, MSN, FNPI49.5 Sick sinus syndromeComments:We changed her pacer mode to DDDR and she is now A-V pacing. Monitor. Will follow in our clinic, per protocol.I48.0 Paroxysmal atrial fibrillationComments:No changes. Monitor.I10 Essential (primary) hypertensionComments:No changes.Z95.0 Presence of cardiac pacemakerComments: Will follow in our pacer clinic, per protocol.AllFollow up:Follow up visit in one year.
[2017-11-08 13:54] VITALS: BP 132/48
--- NOTE | 2017-11-08 14:27 | UC ---
Back Pain HPI - HPI Summary HPI Summary: pt is accompanied by daughter. Pt reports that she fell two nights ago from standing and hit back on dresser with glass top. Pt is unsure why she fell , but now c/o right side low back and rib pain. Daughter reports that pt has bruises and abrasions on right side back and low back . - History of Current Complaint Chief Complaint: [place] Stated Complaint: S/P FALL (YEST) BACK CONTUSION Time Seen by Provider: 11/08/17 14:18 Hx Obtained From: Patient ?: No Onset/Duration: Sudden Onset, Lasting Days, Still Present Timing: Constant Severity Initially: Moderate Severity Currently: Mild Pain Intensity: 4 Back Pain: Is Discrete @ Character: Dull, Aching Aggravating Factor(s): Movement Alleviating Factor(s): Rest Associated Signs And Symptoms: Positive: Bruising, Other - abrasion - Risk Factors AAA Risk Factors: Negative TAD Risk Factors: Hypertension Cauda Equina Risk Factors: Negative Epidural Abscess Risk Factors: Negative - Allergies/Home Medications Allergies/Adverse Reactions: Allergies Allergy/AdvReac Type Severity Reaction Status Date / Time albuterol Allergy Agitation Verified 11/08/17 13:48 TAPE Allergy Rash Uncoded 11/08/17 13:48 Home Medications: Home Medications Acetaminophen [Tylenol Extra Strength] 500 mg PO Q6HR PRN 11/08/17 [History Confirmed 11/08/17] Amiodarone TAB* [Cordarone TAB*] 200 mg PO DAILY 11/08/17 [History Confirmed ] Aspirin EC TAB* [Ecotrin EC Low Dose 81 MG*] 81 mg PO DAILY 11/08/17 [History Confirmed 11/08/17] Cholecalciferol TAB* [Vitamin D TAB*] 400 unit PO DAILY 11/08/17 [History Confirmed 11/08/17] Donepezil TAB* [Aricept 5 MG TAB*] 10 mg PO DAILY 11/08/17 [History Confirmed ] Levothyroxine TAB* [Synthroid TAB*] 88 mcg PO 0800 11/08/17 [History Confirmed 11/08/17] Pravastatin Sodium 20 mg PO DAILY 11/08/17 [History Confirmed 11/08/17] Sertraline* [Zoloft*] 25 mg PO DAILY 11/08/17 [History Confirmed 11/08/17] amLODIPine TAB* [Norvasc 5 mg TAB*] 2.5 mg PO DAILY 11/08/17 [History Confirmed 11/08/17] glipiZIDE TAB* [Glucotrol TAB*] 2.5 mg PO DAILY 11/08/17 [History Confirmed ] PMH/Surg Hx/FS Hx/Imm Hx Previously Healthy: Yes Endocrine History: Dyslipidemia Cardiovascular History: Cardiac Disease, Hypertension, Pacemaker/ICD - Surgical History Surgical History: Yes Surgery Procedure, Year, and Place: [facility]. EYE - Family History Known Family History: Positive: Cardiac Disease - Social History Occupation: Retired Lives: With Family Alcohol Use: None Substance Use Type: None Smoking Status (MU): Former Smoker Have You Smoked in the Last Year: No Review of Systems Constitutional: Negative Skin: Bruising Eyes: Negative ENT: Negative Respiratory: Negative Cardiovascular: Negative Gastrointestinal: Negative Genitourinary: Negative Motor: Negative Neurovascular: Negative Musculoskeletal: Arthralgia, Myalgia Neurological: Negative Psychological: Negative Is Patient Immunocompromised?: No All Other Systems Reviewed And Are Negative: Yes Physical Exam Triage Information Reviewed: Yes Appearance: Well-Appearing Vital Signs: Initial Vital Signs Temp 98.3 F 11/08/17 13:40 Pulse 78 11/08/17 13:40 Resp 19 11/08/17 13:40 BP 132/48 11/08/17 13:40 Pulse Ox 98 11/08/17 13:40 Vital Signs Reviewed: Yes Eye Exam: Normal ENT: Positive: Other - hard of hearing Dental Exam: Normal Neck exam: Normal Respiratory Exam: Normal Cardiovascular Exam: Normal Abdominal Exam: Normal Musculoskeletal Exam: Other Musculoskeletal: Positive: Other: - pain right lower back and right medial ribs Neurological Exam: Normal Psychological Exam: Normal Skin Exam: Other - hematoma, bruises right lower back, and ribs Diagnostics - Radiology No standard instances Radiology Interpretation Completed By: Radiologist - IMPRESSION: THERE IS PLEURAL THICKENING ADJACENT TO THE RIGHT LATERAL SIXTH AND SEVENTH RIBS POSSIBLY INDICATING AN UNDERLYING NONDISPLACED FRACTURE. THERE IS NO EVIDENCE FOR PLEURAL EFFUSION OR PNEUMOTHORAX. RECOMMEND A FOLLOW-UP CHEST X-RAY STUDY IN 2 MONTHS TIME TO DEMONSTRATE STABILITY OF THE CHEST X-RAY FINDING Back Pain Course/Dx - Differential Dx/Diagnosis Differential Diagnosis/HQI/PQRI: Fracture Provider Diagnoses: rib contusion. low back injury. low back contusion Discharge - Sign-Out/Discharge Documenting (check all that apply): Patient Departure All imaging exams completed and their final reports reviewed: Yes - Discharge Plan Condition: Stable Disposition: HOME Patient Education Materials: Contusion in Adults (ED), Rib Contusion (ED) Referrals: Doris Garcia MD [Primary Care Provider] - If Needed Additional Instructions: Please follow up with your PCP as needed. It has been recommended that you have a follow up with another xray in two months - Billing Disposition and Condition Condition: STABLE Disposition: Home
--- NOTE | 2017-11-08 15:05 | RAD ---
INDICATION: Right rib injury. COMPARISON: There are no relevant prior studies available for comparison. TECHNIQUE: 4 views of the right ribs and dual-energy PA views of the chest were obtained. FINDINGS: No discrete fracture is seen although there is focal pleural thickening adjacent to the lateral aspects of the sixth and seventh ribs possibly secondary to underlying fracture although nonspecific. The heart is within normal limits in size. There is a transvenous dual-chamber cardiac pacemaker present. No pleural effusion or pneumothorax is seen. IMPRESSION: THERE IS PLEURAL THICKENING ADJACENT TO THE RIGHT LATERAL SIXTH AND SEVENTH RIBS POSSIBLY INDICATING AN UNDERLYING NONDISPLACED FRACTURE. THERE IS NO EVIDENCE FOR PLEURAL EFFUSION OR PNEUMOTHORAX. RECOMMEND A FOLLOW-UP CHEST X-RAY STUDY IN 2 MONTHS TIME TO DEMONSTRATE STABILITY OF THE CHEST X-RAY FINDING.
== END 2017-11-08 15:17 | disposition home or self-care (01) ==
LOC: UCCORT 12:28
DX: S20.20XA Contusion of thorax, unspecified, initial encounter (principal); S39.92XA Unspecified injury of lower back, initial encounter; S30.0XXA Contusion of lower back and pelvis, initial encounter; W19.XXXA Unspecified fall, initial encounter; Y93.9 Activity, unspecified; Y92.003 Bedroom of unspecified non-institutional (private) residence as the place of occurrence of the external cause; Z88.8 Allergy status to other drugs, medicaments and biological substances; E78.5 Hyperlipidemia, unspecified; I10 Essential (primary) hypertension; Z95.811 Presence of heart assist device; I51.9 Heart disease, unspecified; Z87.891 Personal history of nicotine dependence
CPT/HCPCS: 99201; G0463